=== PATIENT | male | born 1990 | race Hispanic/Latino ===

== ENCOUNTER 2020-10-01 18:28 | Emergency (ER) | payer SELFPAY ==
[2020-10-02 16:47] LABS: SARS-CoV-2 PCR by NAA Not Detected (NotDetected)
== END 2020-10-01 19:02 | disposition home or self-care (01) ==
LOC: BURERS 18:28
DX: R41.82 Altered mental status, unspecified (principal); Z20.822 Contact with and (suspected) exposure to COVID-19
CPT/HCPCS: 99283; U0003; U0005

== ENCOUNTER 2021-04-07 01:13 | Emergency (ER) | payer SELFPAY ==
[2021-04-07] MEDS ORDERED: Iopamidol 370 76% 100 ML VIAL FS ONE (01:14)
[2021-04-07] MEDS ORDERED: Acetaminophen 325 MG TAB ONE ×2 (01:45→01:47)
[2021-04-07 01:54] LABS: #Basophils 0.1 thou/uL (0.0-0.2); #Eosinphils 0.1 thou/uL (0.0-0.7); #Lymphocytes 2.1 thou/uL (1.20-3.40); #Monocytes 0.9 thou/uL (0.11-0.59); #Neutrophils 8.1 thou/uL (1.40-6.50); %Eosinophils 1.3 % (0.0-10.0); %Lymphocytes 18.7 % (21.0-51.0); %Monocytes 8.1 % (0.0-10.0); %Neutrophils 70.9 % (42.0-75.0); Hemoglobin 14.6 g/dL (14.0-18.0); Mean Corpuscular HGB CONC 33.2 g/dL (32.0-36.0); Mean Corpuscular Hemoglobin 28.4 pg (27.0-31.0); Mean Corpuscular Volume 85.3 fL (78.0-98.0); Mean Platelet Volume 7.9 fL (7.4-10.4); Platelet Count 213 thou/uL (130-400); RBC Distribution Width 11.8 % (11.5-14.5); Red Blood Cell (RBC) Count 5.16 mill/uL (4.70-6.10); White Blood Cell (WBC) Count 11.4 thou/uL (4.8-10.8)
[2021-04-07 02:07] LABS: ALT (SGPT) 15 U/L (8-55); AST (SGOT) 13 U/L (5-34); Albumin 4.3 g/dL (3.5-5.0); Alkaline Phosphatase 73 U/L (40-110); Anion Gap 14 mmol/L (10-20); BUN (Urea Nitrogen) 9 mg/dL (8.9-20.6); Bilirubin, Total 0.5 mg/dL (0.2-1.2); Calc. Creatinine Clearance 0 mL/min (70-130); Calcium 9.2 mg/dL (7.8-10.44); Carbon Dioxide 27 mmol/L (22-29); Chloride 104 mmol/L (98-107); Globulin 2.8 g/dL (2.4-3.5); Glucose 103 mg/dL (70-105); Lipase 17 U/L (8-78); Potassium 4.2 mmol/L (3.5-5.1); Protein, Total 7.1 g/dL (6.0-8.3); Sodium 141 mmol/L (136-145)
[2021-04-07 02:18] LABS: Bilirubin Negative (Negative); Blood, Urine Negative (Negative); Clarity Clear (Clear); Glucose, Urine (Dipstick) Negative (Negative); Ketone, Urine Negative (Negative); Leukocyte Negative (Negative); Nitrite Negative (Negative); Protein, Urine (Dipstick) Negative (Neg-Trace); Urobilinogen 0.2 mg/dL (Less than 2); pH, Urine 6.5 (5.0-9.0)
[2021-04-07] MEDS ORDERED: cefTRIAXone\\ROCEPHIN 2 GM VIAL ONE (02:21)
[2021-04-07] MEDS ORDERED: Ibuprofen 200 MG TAB ONE ×3 (02:23→02:24)
[2021-04-07] MEDS ORDERED: Sodium Chloride 0.9% 100 ML ONE (02:25)
== END 2021-04-07 04:35 ==
LOC: BURERS 01:13
DX: K57.92 Diverticulitis of intestine, part unspecified, without perforation or abscess without bleeding (principal); N20.0 Calculus of kidney
CPT/HCPCS: 74177; 80053; 81003; 83605; 83690; 85025; 96374; J0696; J3490; Q9967